=== PATIENT | female | born 1955 | race Caucasian/White ===

== ENCOUNTER 2019-03-13 08:11 | Day surgery (SDC) | payer OTHER ==
[~2019-03-13 08:11] MED LIST: NACL 0.9% 1000 ML 1,000 ML IV SCH
--- NOTE | 2019-03-13 09:19 | Anesthesia Consultation ---
Anesthesia Consult and Med Hx Date of service: 03/13/19 - Airway Anesthetic Teeth Evaluation: Good ROM Head & Neck: Adequate Mental/Hyoid Distance: Adequate Mallampati Class: Class II Intubation Access Assessment: Probably Good - Pulmonary Exam CTA: Yes - Cardiac Exam Cardiac Exam: RRR - Pre-Operative Health Status ASA Pre-Surgery Classification: ASA2 Proposed Anesthetic Plan: MAC - Pulmonary Hx Smoking: No Hx Asthma: No Hx Respiratory Symptoms: No - Cardiovascular System Hx Hypertension: Yes (Took medication this morning ) Hx Coronary Artery Disease: No Hx Cardia Arrhythmia: No - Central Nervous System Hx Neuromuscular Disorder: No Hx Psychiatric Problems: No - Gastrointestinal Hx Gastroesophageal Reflux Disease: Yes (controlled with medication) - Endocrine Hx Renal Disease: No Hx Liver Disease: No Hx Insulin Dependent Diabetes: No Hx Non-Insulin Dependent Diabetes: No - Hematic Hx Anemia: No - Other Systems Hx Alcohol Use: No Hx Substance Use: No Hx Obesity: No - Additional Comments Anesthesia Medical History Comments: Used language line for interpretation (Bach - [id number]); patient with no previous surgery, no FHAC.
--- NOTE | 2019-03-13 09:20 | Anesthesia Day of Surgery ---
Anesthesia Day of Surgery - Day of Surgery Patient Examined: Yes Patient H&P Reviewed: Yes Patient is NPO: Yes Beta Blockers: No Cardiac Clearance: No Pulmonary Clearance: No
[2019-03-13] MEDS ORDERED: DIPRIVAN 10 MG/ML IV ONE ×2 (10:08)
[2019-03-13] MEDS ORDERED: WATER FOR IRRIG STERILE IR ONE (10:26)
--- NOTE | 2019-03-13 10:50 | Short Stay Summary ---
Short Stay Documentation Date of service: 03/13/19 Narrative H&P: Pt is a 63 yo female who presents for screening colonoscopy. No prior colonoscopy. Denies lower gi complaints. - History H&P: obtained from office Past Medical History: other (no change from office note) Past Surgical History: Other (no changes) Social history: no significant social history - Allergies and Medications Current Medications: Allergies No Known Allergies Allergy (Verified 03/12/19 13:18) Home Medications Medication Instructions Recorded Confirmed Last Taken Type Ibuprofen 800 mg PO DAILY 03/12/19 03/13/19 03/11/19 History Lisinopril/Hydrochlorothiazide 12.5 - 20 mg PO DAILY 03/12/19 03/13/19 03/13/19 History Ranitidine HCl 300 mg PO DAILY 03/12/19 03/12/19 Unknown History Simvastatin 20 mg PO DAILY 03/12/19 03/13/19 03/11/19 History Active Medications Sodium Chloride (Nacl 0.9% 1000 Ml) 1,000 mls @ 50 mls/hr IV DIRECT LEOBARDO Last Admin: 03/13/19 09:21 Dose: 50 mls/hr Documented by: - Physical exam General appearance: no acute distress Lungs: Clear to auscultation Heart: Regular rate, Normal S1, Normal S2 Gastrointestinal: normal - Brief post op/procedure progress note Date of procedure: 03/13/19 Pre-op diagnosis: screening colonoscopy Post-op diagnosis: same Procedure: colonoscopy Anesthesia: MAC Findings: normal colon Surgeon: ESTEBAN BELTRAN Estimated blood loss: none Pathology: none Condition: stable - Disposition Condition at discharge: Good Disposition: DC-01 TO HOME OR SELFCARE Short Stay Discharge Plan Follow up with: GINA HOOKS MD [Primary Care Provider] - 7 Days
--- NOTE | 2019-03-13 10:52 | Operative Report ---
Operative Report Operative Report: Colonoscopy Procedure Note Date of procedure: 03/13/2019 Endoscopist: Luis Lopez Pre-op diagnosis: Screening for colon cancer Post-op diagnosis: Normal colonoscopy Anesthesia: MAC Complications: No immediate complications Estimated blood loss: minimal Procedure: After consent was obtained, the patient was placed in the left lateral decubitus position. The olympus colonoscope was inserted into the patient's rectum under direct vision, and advanced to the cecum without difficulty. The patient tolerated the procedure well. The views of the mucosa were good. The quality of prep was good. The patient's vital signs were monitored continuously throughout the procedure. Findings: The entire examined colon appeared normal. Impression: 1. Normal colonoscopy Recommendations: -repeat colonoscopy for screening purposes in 10 years
[2019-03-13 11:17] VITALS: BP 134/69
== END 2019-03-13 11:50 | disposition home or self-care (01) ==
LOC: GIO 08:11
PROVIDERS: ATTEND Internal Medicine Gastroenterology
DX: Z12.11 Encounter for screening for malignant neoplasm of colon (principal); E78.00 Pure hypercholesterolemia, unspecified; I10 Essential (primary) hypertension; K21.9 Gastro-esophageal reflux disease without esophagitis; Z79.899 Other long term (current) drug therapy
CPT/HCPCS: 45378; J2704; J7030